=== PATIENT | male | born 1960 | race Caucasian/White ===

== ENCOUNTER 2019-04-30 07:27 | Inpatient (IN) | payer OTHER, MEDICARE ==
[2019-04-30] MEDS ORDERED: IPRATROPIUM/ALBUTEROL 0.5-2.5 MG/3 ML AMPUL NEB ONE (08:32)
--- NOTE | 2019-04-30 09:36 | RADIOLOGY REPORT (SQ) ---
EXAM DESCRIPTION: CHEST SINGLE VIEW COMPLETED DATE/TIME: 04/30/2019 8:53 am REASON FOR STUDY: sob RAD COMPARISON: None. EXAM PARAMETERS: NUMBER OF VIEWS: One view. TECHNIQUE: Single frontal radiographic view of the chest acquired. RADIATION DOSE: NA LIMITATIONS: None. FINDINGS: LUNGS AND PLEURA: Patchy bilateral alveolar infiltrates are present worrisome for pulmonar y edema. Pulmonary vascular congestion is present. No pleural effusion. No pneumothorax MEDIASTINUM AND HILAR STRUCTURES: No masses. Contour normal. HEART AND VASCULAR STRUCTURES: No cardiomegaly BONES: No acute findings. HARDWARE: None in the chest. OTHER: No other significant finding. IMPRESSION: Patchy diffuse bilateral airspace disease worrisome for pulmonary edema. Pneumonia coul d mimic this appearance. TECHNICAL DOCUMENTATION: JOB ID: [id number] [email or web address]- All Rights Reserved Reading location - IP/workstation name: [email or web address]
[2019-04-30 09:55] LABS: ABSOLUTE LYMPHOCYTES (AUTO) 0.7 10^3/uL (0.5-4.7); ABSOLUTE MONOCYTES (AUTO) 0.6 10^3/uL (0.1-1.4); ABSOLUTE NEUT (AUTO) 9.9 10^3/uL (1.7-8.2); BASOPHILS % (AUTO) 0.2 % (0-2); EOSINOPHILS % (AUTO) 0.4 % (0-6); HEMATOCRIT 37.9 % (37.9-51.0); HEMOGLOBIN 12.6 g/dL (13.5-17.0); MEAN CORPUSCULAR HEMOGLOBIN 28.9 pg (27.0-33.4); MEAN CORPUSCULAR HGB CONC 33.4 g/dL (32.0-36.0); MEAN CORPUSCULAR VOLUME 87 fl (80-97); MONOCYTES % (AUTO) 5.7 % (3-13); PLATELET COUNT 156 10^3/uL (150-450); RED BLOOD COUNT 4.38 10^6/uL (4.35-5.55); SEGMENTED NEUTROPHILS % (AUTO) 87.7 % (42-78); TOTAL CELLS COUNTED % (AUTO) 100 %; WHITE BLOOD COUNT 11.2 10^3/uL (4.0-10.5)
[2019-04-30 10:14] LABS: ANION GAP 12 (5-19); BLOOD UREA NITROGEN 10 mg/dL (7-20); CARBON DIOXIDE 27 mmol/L (22-30); CHLORIDE 100 mmol/L (98-107); GLUCOSE 225 mg/dL (75-110); POTASSIUM 4.1 mmol/L (3.6-5.0); SODIUM 138.8 mmol/L (137-145)
[2019-04-30] MEDS ORDERED: CEFTRIAXONE 1 GM/D5W RTU 1 GM/50 ML RTUPB IV ONE (10:19)
[2019-04-30] MEDS ORDERED: AZITHROMYCIN 250 MG TABLET PO ONE (10:20)
--- NOTE | 2019-04-30 10:24 | ER Document Report ---
ED General - General Chief Complaint: Shortness Of Breath Stated Complaint: SHORTNESS OF BREATH Time Seen by Provider: 04/30/19 08:30 Primary Care Provider: MOY,YANNICK [Primary Care Provider] - Follow up as needed Notes: She presents with shortness of breath and cough ongoing over about a 2-week. But worse. Waking up with cold sweats at night as well. History of smoking but is been tobacco free for several years. Does take inhalers here and there but they are not helping this. TRAVEL OUTSIDE OF THE [place] IN LAST 30 DAYS: No - Related Data Allergies/Adverse Reactions: No Known Allergies Allergy (Unverified 04/30/19 07:31) Past Medical History - Social History Smoking Status: Former Smoker Frequency of alcohol use: None Drug Abuse: None Family History: Reviewed & Not Pertinent Patient has suicidal ideation: No Patient has homicidal ideation: No Pulmonary Medical History: Reports: Hx Asthma Endocrine Medical History: Reports: Hx Diabetes Mellitus Type 2 Renal/ Medical History: Denies: Hx Peritoneal Dialysis Psychiatric Medical History: Reports: Hx Anxiety, Hx Post Traumatic Stress Disorder Past Surgical History: Reports: Hx Appendectomy, Hx Orthopedic Surgery - amputation of ring finger left hand - Immunizations Immunizations up to date: Yes Hx Diphtheria, Pertussis, Tetanus Vaccination: No Review of Systems - Review of Systems Notes: REVIEW OF SYSTEMS GEN: Fever sweats ENT: Denies sore throat, nasal discharge, ear pain EYES: Denies blurry vision, eye pain, discharge CV: Denies chest pain, palpitations, edema RESP: Cough phlegm shortness of breath GI: Denies abdominal pain, nausea, vomiting, diarrhea MSK: Denies joint pain/swelling, edema, SKIN: Denies rash, skin lesions LYMPH: Denies swollen glands/lymph nodes NEURO: Denies headache, focal weakness or numbness, dizziness PSYCH: Denies depression, suicidal or homicidal ideation PHYSICAL EXAMINATION General: No acute distress, well-nourished Head: Atraumatic, normocephalic ENT: Mouth normal, oropharynx moist, no exudates or tonsillar enlargement Eyes: Conjunctiva normal, pupils equal, lids normal Neck: No JVD, supple, no guarding CVS: Normal rate, regular rhythm, no murmurs Resp: Bilateral crackles, tachypnea, minimal distress GI: Nondistended, soft, no tenderness to palpation, no rebound or guarding Ext: No deformities, no edema, normal range of motion in upper and lower ext Back: No CVA or midline TTP Skin: No rash, warm Lymphatic: No lymphadeopathy noted Neuro: Awake, alert. Face symmetric. GCS 15. Physical Exam - Vital signs Vitals: Temp Pulse Resp BP Pulse Ox 98.7 F 90 24 H 127/55 H 84 L 04/30/19 07:35 04/30/19 07:35 04/30/19 07:35 04/30/19 07:35 04/30/19 07:35 Course - Re-evaluation Re-evalutation: 04/30/19 10:23 Patient presents with shortness of breath hot sweats history of smoking likely a component of reactive airways disease plus or minus pneumonia. He was initiated on a sepsis protocol and provided submental oxygen. He was given steroids and a breathing treatment. I reassessed him at 10:20 AMat this time his x-ray has come back with bilateral infiltrates which is being read as pulmonary edema but given his clinical picture in my opinion is more likely infectious. He still requiring 4 L and is breathing in the 20 range. He initially want to go home but I convinced him to stay. Labs have been ordered including lactic and cultures, he will be given fluids, there are no signs of severe sepsis. Ordered Rocephin and azithromycin. Discussed with hospitalist Dr. deleon. - Vital Signs Vital signs: Temp Pulse Resp BP Pulse Ox 98.7 F 90 16 129/77 H 97 04/30/19 07:35 04/30/19 07:35 04/30/19 10:01 04/30/19 10:01 04/30/19 10:01 - Laboratory Result Diagrams: 04/30/19 09:30 04/30/19 09:30 Laboratory results interpreted by me: 04/30/19 04/30/19 09:30 09:30 WBC 11.2 H Hgb 12.6 L Seg Neutrophils % 87.7 H Lymphocytes % 6.0 L Absolute Neutrophils 9.9 H Glucose 225 H - Diagnostic Test Radiology reviewed: Pending, Image reviewed, Reports reviewed Discharge - Discharge Clinical Impression: Community acquired pneumonia Qualifiers: Laterality: right Lung location: middle lobe of lung Qualified Code(s): J18.1 - Lobar pneumonia, unspecified organism Condition: Fair Disposition: ADMITTED INPATIENT Admitting Provider: Leisa (Hospitalist) Unit Admitted: Medical Floor [facility] - Follow up as needed
[2019-04-30] MEDS ORDERED: ACETAMINOPHEN 325 MG TABLET PO PRN (13:32)
[2019-04-30] MEDS ORDERED: (PENDING PHARMACY ID) (Oxycodone Hcl/Acetaminophen [Percocet 10-325 Mg Tablet] 1 TAB) PO PRN (13:34)
[2019-04-30] MEDS ORDERED: (PENDING PHARMACY ID) (Trazodone Hcl [Desyrel] 150 MG) PO PRN (13:34)
[2019-04-30] MEDS ORDERED: OXYCODONE HCL IR 5 MG TABLET PO PRN (13:51)
[2019-04-30] MEDS ORDERED: OXYCODONE-ACETAMINOPHEN 5-325 MG TABLET PO PRN (13:51)
[2019-04-30] MEDS: IPRATROPIUM/ALBUTEROL 0.5-2.5 MG/3 ML AMPUL NEB SCH ×2 (13:57→20:07)
[2019-04-30 14:27] LABS: A TYPE INFLUENZA AG NEGATIVE (NEGATIVE); B INFLUENZA AG NEGATIVE (NEGATIVE)
[2019-04-30] MEDS ORDERED: ENOXAPARIN SODIUM INJ 40 MG/0.4 ML DISP.SYRIN SUBCUT SCH (16:00)
--- NOTE | 2019-04-30 18:38 | PDOC H&P ---
History of Present Illness Admission Date/PCP: 04/30/19 10:41 [facility] History of Present Illness: MARIA E BARRETO is a 59 year old male past medical history of DM, PTSD, depression, controlled asthma on as needed albuterol for chronic lateral lower extremity pain opioid dependent, presented to ED complaining of generalized body aches shortness of breath associated with nonproductive cough, denies any fever, chest pain, nausea, vomiting, diarrhea, constipation, weight changes, skin changes, night sweats, heat or cold intolerance. In ED he was found to have an SPO2 of 84% on room air, his x-ray showed diffuse bilateral airspace disease worrisome for pulmonary edema/pneumonia. CMP with mild leukocytosis CMP with hyperglycemia. Lactic acid, troponins, proBNP all WNL. Past Medical History Pulmonary Medical History: Reports: Asthma Endocrine Medical History: Reports: Diabetes Mellitus Type 2 Psychiatric Medical History: Reports: Post Traumatic Stress Disorder Past Surgical History Past Surgical History: Reports: Appendectomy, Orthopedic Surgery - amputation of ring finger left hand Social History Smoking Status: Former Smoker - Advance Directive Resuscitation Status: Full Code Family History Family History: Reviewed & Not Pertinent Parental Family History Reviewed: Yes Children Family History Reviewed: Yes Sibling(s) Family History Reviewed.: Yes Medication/Allergy Home Medications: Albuterol Sulfate [Proair HFA Inhalation Aerosol 8.5 gm MDI] 2 puff IH Q4HP PRN 04/30/19 Fluticasone Propionate [Flonase Nasal [place] 50 Mcg/[place] 16 gm] 2 spray NASL DAILY 04/30/19 Hydroxyzine Pamoate [Vistaril 25 mg Capsule] 25 mg PO TIDP PRN 04/30/19 Hydroxyzine Pamoate [Vistaril 25 mg Capsule] 50 mg PO HSP PRN 04/30/19 Omeprazole 20 mg PO DAILY 04/30/19 Oxycodone HCl/Acetaminophen [Percocet 10-325 mg Tablet] 1 tab PO Q8HP PRN 04/30/19 Prazosin HCl [Minipress] 1 mg PO QHS 04/30/19 Sertraline HCl [Zoloft] 150 mg PO DAILY 04/30/19 Sildenafil Citrate [Viagra] 100 mg PO DAILYP PRN 04/30/19 Sodium Fluoride [Prevident 5000 Plus] 1 applic PO DAILY 04/30/19 Trazodone HCl [Desyrel] 150 mg PO HSP PRN 04/30/19 Allergies/Adverse Reactions: No Known Allergies Allergy (Unverified 04/30/19 07:31) Physical Exam Vital Signs: Temp Pulse Resp BP Pulse Ox 98.4 F 81 19 155/83 H 94 04/30/19 17:12 04/30/19 17:12 04/30/19 17:12 04/30/19 17:12 04/30/19 17:49 Pulse Oximeter Continuous Start: 04/30/19 13:32 Freq: RTQ4 Status: Active Protocol: Document 04/30/19 17:49 B[facility] (Rec: 04/30/19 17:54 BOR [id number]) Pulse Oximetry Assessment Oxygen Saturation (92-100) 94 Oxygen Flow Rate (L/min) 1 Oxygen Delivery Method Nasal Cannula Fraction of Inspired Oxygen (FIO2) 24 Equipment Usage Equipment in Use Continuous Pulse Oximeter 24 Hour Charge Charge Now Continuous SpO2 Machine # 13 Intake & Output 04/29/19 04/30/19 05/01/19 06:59 06:59 06:59 Intake Total 50 Balance 50 Weight 73.8 kg General appearance: PRESENT: no acute distress, well-developed, well-nourished Head exam: PRESENT: atraumatic, normocephalic Eye exam: PRESENT: conjunctiva pink, EOMI, PERRLA. ABSENT: scleral icterus Ear exam: PRESENT: normal external ear exam Mouth exam: PRESENT: moist, tongue midline Neck exam: ABSENT: carotid bruit, JVD, lymphadenopathy, thyromegaly Respiratory exam: PRESENT: clear to auscultation richie. ABSENT: rales, rhonchi, wheezes Cardiovascular exam: PRESENT: RRR. ABSENT: diastolic murmur, rubs, systolic murmur Pulses: PRESENT: normal dorsalis pedis pul Vascular exam: PRESENT: normal capillary refill GI/Abdominal exam: PRESENT: normal bowel sounds, soft. ABSENT: distended, guarding, mass, organolmegaly, rebound, tenderness Rectal exam: PRESENT: deferred Extremities exam: PRESENT: full ROM. ABSENT: calf tenderness, clubbing, pedal edema Neurological exam: PRESENT: alert, awake, oriented to person, oriented to place, oriented to time, oriented to situation, CN II-XII grossly intact. ABSENT: motor sensory deficit Psychiatric exam: PRESENT: appropriate affect, normal mood. ABSENT: homicidal ideation, suicidal ideation Skin exam: PRESENT: dry, intact, warm. ABSENT: cyanosis, rash Results Laboratory Results: 04/30/19 09:30 04/30/19 09:30 04/30/19 04/30/19 04/30/19 09:30 09:30 09:30 WBC 11.2 H RBC 4.38 Hgb 12.6 L Hct 37.9 MCV 87 MCH 28.9 MCHC 33.4 RDW 13.0 Plt Count 156 Seg Neutrophils % 87.7 H Lymphocytes % 6.0 L Monocytes % 5.7 Eosinophils % 0.4 Basophils % 0.2 Absolute Neutrophils 9.9 H Absolute Lymphocytes 0.7 Absolute Monocytes 0.6 Absolute Eosinophils 0.0 Absolute Basophils 0.0 Sodium 138.8 Potassium 4.1 Chloride 100 Carbon Dioxide 27 Anion Gap 12 BUN 10 Creatinine 0.53 Est GFR ( Amer) > 60 Est GFR (Non-Af Amer) > 60 Glucose 225 H Lactic Acid 0.9 Calcium 9.0 04/30/19 09:30 NT-Pro-B Natriuret Pep 754 Impressions: Chest X-Ray 04/30/19 08:32 IMPRESSION: Patchy diffuse bilateral airspace disease worrisome for pulmonary edema. Pneumonia could mimic this appearance. Assessment and Plan - Diagnosis (1) Community acquired pneumonia Qualifiers: Laterality: right Lung location: middle lobe of lung Qualified Code(s): J18.1 - Lobar pneumonia, unspecified organism Is this a current diagnosis for this admission?: Yes Plan: Community-acquired, likely due to gram-positive including strep pneumo. Received 1 dose of azithromycin and ceftriaxone in ED. Continue ceftriaxone, switched to p.o. as appropriate. Follow sputum and blood culture. Supplemental oxygen. (2) Diabetes mellitus type 2 in nonobese Is this a current diagnosis for this admission?: Yes Plan: No A1c available. Diabetic diet, sliding scale insulin, long-acting insulin, pre-meal insulin, Accu-Chek, hypoglycemia protocol. Restart home meds on discharge. Outpatient PCP follow-up. (3) Depression Is this a current diagnosis for this admission?: Yes Plan: Denies any suicidal or homicidal ideation. Restart home meds. Outpatient psychiatry follow-up. (4) PTSD (post-traumatic stress disorder) Is this a current diagnosis for this admission?: Yes Plan: Start home meds. (5) Opioid dependence with current use Is this a current diagnosis for this admission?: No Plan: Due to bilateral chronic knee pain. Restart home meds. Outpatient PCP follow-up. (6) Asthma Qualifiers: Asthma severity: mild Asthma persistence: intermittent Asthma complication type: uncomplicated Qualified Code(s): J45.20 - Mild intermittent asthma, uncomplicated Is this a current diagnosis for this admission?: Yes Plan: Does not seems to be exacerbated. Well controlled. On PRN albuterol. PRN DuoNeb's, BiPAP, supplemental oxygen. Restart home meds on discharge.
[2019-04-30] MEDS: FAMOTIDINE 20 MG TABLET PO SCH (21:20)
[2019-04-30] MEDS: GUAIFENESIN 600 MG TABLET.SA PO SCH (21:20)
[2019-04-30] MEDS: TRAZODONE HCL 50 MG TABLET PO PRN (21:21)
[2019-04-30] MEDS ORDERED: (PENDING PHARMACY ID) (Prazosin Hcl [Minipress] 1 MG) PO SCH (22:00)
[2019-05-01 03:58] LABS: ABSOLUTE EOSINOPHILS # (AUTO) 0.1 10^3/uL (0.0-0.6); ABSOLUTE MONOCYTES (AUTO) 0.6 10^3/uL (0.1-1.4); BASOPHILS % (AUTO) 0.6 % (0-2); EOSINOPHILS % (AUTO) 1.3 % (0-6); HEMATOCRIT 34.4 % (37.9-51.0); HEMOGLOBIN 11.7 g/dL (13.5-17.0); LYMPHOCYTES % (AUTO) 12.4 % (13-45); MEAN CORPUSCULAR HEMOGLOBIN 29.6 pg (27.0-33.4); MEAN CORPUSCULAR HGB CONC 34.1 g/dL (32.0-36.0); MEAN CORPUSCULAR VOLUME 87 fl (80-97); PLATELET COUNT 147 10^3/uL (150-450); RED BLOOD COUNT 3.96 10^6/uL (4.35-5.55); SEGMENTED NEUTROPHILS % (AUTO) 77.7 % (42-78); TOTAL CELLS COUNTED % (AUTO) 100 %; WHITE BLOOD COUNT 7.7 10^3/uL (4.0-10.5)
[2019-05-01 04:14] LABS: ALANINE AMINOTRANSFERASE 26 U/L (21-72); ALBUMIN 2.9 g/dL (3.5-5.0); ALKALINE PHOSPHATASE 75 U/L (38-126); ANION GAP 10 (5-19); ASPARTATE AMINO TRANSFERASE 25 U/L (17-59); BILIRUBIN,DIRECT 0.3 mg/dL (0.0-0.4); BILIRUBIN,TOTAL 0.6 mg/dL (0.2-1.3); BLOOD UREA NITROGEN 10 mg/dL (7-20); CALCIUM 8.2 mg/dL (8.4-10.2); CARBON DIOXIDE 26 mmol/L (22-30); CHLORIDE 102 mmol/L (98-107); GLUCOSE 216 mg/dL (75-110); POTASSIUM 3.5 mmol/L (3.6-5.0); SODIUM 137.6 mmol/L (137-145); TOTAL PROTEIN 5.4 g/dL (6.3-8.2)
[2019-05-01] MEDS: IPRATROPIUM/ALBUTEROL 0.5-2.5 MG/3 ML AMPUL NEB SCH ×3 (08:59→19:49)
[2019-05-01] MEDS ORDERED: CEFTRIAXONE SODIUM 1,000 MG in DEXTROSE 5%-WATER 50 ML IV SCH (10:00)
[2019-05-01] MEDS ORDERED: CEFTRIAXONE 1 GM/D5W RTU 50 ML IV SCH (10:00)
[2019-05-01] MEDS ORDERED: SERTRALINE HCL 50 MG TABLET PO SCH (10:00)
[2019-05-01] MEDS ORDERED: ENOXAPARIN SODIUM INJ 40 MG/0.4 ML DISP.SYRIN SUBCUT SCH (10:00)
[2019-05-01] MEDS: FAMOTIDINE 20 MG TABLET PO SCH ×2 (10:26→22:45)
[2019-05-01] MEDS: GUAIFENESIN 600 MG TABLET.SA PO SCH ×2 (10:26→22:45)
--- NOTE | 2019-05-01 13:05 | PDOC PROGRESS REPORT ---
Subjective Progress Note for:: 05/01/19 Subjective:: This is 49 years old male patient with past medical history of type 2 diabetes mellitus, PTSD, depression, bronchial asthma, opiate dependence presented with chief complaint of generalized body aches, shortness of breath associated with cough productive of sputum. His chest x-ray shows diffuse bilateral airspace disease worrisome for pulmonary edema/pneumonia. Patient empirically started on ceftriaxone and Zithromax. Patient reports this morning his shortness of breath is relatively improving. If he remains stable he is potential discharge for tomorrow. Reason For Visit: PNEUMONIA,DM Physical Exam Vital Signs: Temp Pulse Resp BP Pulse Ox 98.4 F 86 16 145/75 H 97 05/01/19 08:41 05/01/19 08:59 05/01/19 08:59 05/01/19 08:41 05/01/19 12:00 Pulse Oximeter Continuous Start: 04/30/19 13:32 Freq: RTQ4 Status: Active Protocol: Document 05/01/19 12:00 [facility] (Rec: 05/01/19 12:43 [facility] [email or web address]) Pulse Oximetry Assessment Oxygen Saturation (92-100) 97 Oxygen Flow Rate (L/min) 1 Oxygen Delivery Method Nasal Cannula Fraction of Inspired Oxygen (FIO2) 24 Equipment Usage Equipment in Use Continuous SpO2 Machine # 13 Intake & Output 04/30/19 05/01/19 05/02/19 06:59 06:59 06:59 Intake Total 1310 50 Output Total 2 Balance 1308 50 Weight 74.8 kg General appearance: PRESENT: no acute distress Head exam: PRESENT: atraumatic Neck exam: ABSENT: carotid bruit, JVD, lymphadenopathy, thyromegaly Respiratory exam: PRESENT: crackles Cardiovascular exam: PRESENT: RRR. ABSENT: diastolic murmur, rubs, systolic murmur GI/Abdominal exam: PRESENT: normal bowel sounds, soft. ABSENT: distended, guarding, mass, organolmegaly, rebound, tenderness Neurological exam: PRESENT: alert, awake, oriented to person, oriented to place, oriented to time, oriented to situation Results Laboratory Results: 05/01/19 03:38 05/01/19 03:38 05/01/19 05/01/19 03:38 03:38 WBC 7.7 RBC 3.96 L Hgb 11.7 L Hct 34.4 L MCV 87 MCH 29.6 MCHC 34.1 RDW 13.0 Plt Count 147 L Seg Neutrophils % 77.7 Lymphocytes % 12.4 L Monocytes % 8.0 Eosinophils % 1.3 Basophils % 0.6 Absolute Neutrophils 6.0 Absolute Lymphocytes 1.0 Absolute Monocytes 0.6 Absolute Eosinophils 0.1 Absolute Basophils 0.0 Sodium 137.6 Potassium 3.5 L Chloride 102 Carbon Dioxide 26 Anion Gap 10 BUN 10 Creatinine 0.45 L Est GFR ( Amer) > 60 Est GFR (Non-Af Amer) > 60 Glucose 216 H Calcium 8.2 L Total Bilirubin 0.6 AST 25 ALT 26 Alkaline Phosphatase 75 Total Protein 5.4 L Albumin 2.9 L 04/30/19 09:30 NT-Pro-B Natriuret Pep 754 Impressions: Chest X-Ray 04/30/19 08:32 IMPRESSION: Patchy diffuse bilateral airspace disease worrisome for pulmonary edema. Pneumonia could mimic this appearance. Assessment and Plan - Diagnosis (1) Community acquired pneumonia Is this a current diagnosis for this admission?: Yes Plan: Continue ceftriaxone and Zithromax. (2) Type 2 diabetes mellitus Is this a current diagnosis for this admission?: Yes Plan: When I review his home medications, Antidiabetic medications are not in the list. I will continue sliding scale. (3) PTSD and depression Is this a current diagnosis for this admission?: Yes Plan: Continue his home medications. (4) History of bronchial asthma. Is this a current diagnosis for this admission?: Yes Plan: In remission.
[2019-05-01] MEDS: TRAZODONE HCL 50 MG TABLET PO PRN (22:45)
[2019-05-02] MEDS: IPRATROPIUM/ALBUTEROL 0.5-2.5 MG/3 ML AMPUL NEB SCH (07:42)
--- NOTE | 2019-05-02 08:34 | PDOC DISCHARGE SUMMARY ---
General - Admit/Disc Date/PCP Admission Date/Primary Care Provider: 05/01/19 09:47 [facility] Discharge Date: 05/02/19 - Discharge Diagnosis (1) Community acquired pneumonia Is this a current diagnosis for this admission?: Yes (2) Type 2 diabetes mellitus Is this a current diagnosis for this admission?: Yes (3) PTSD and depression Is this a current diagnosis for this admission?: Yes (4) History of bronchial asthma. Is this a current diagnosis for this admission?: Yes - Additional Information Resuscitation Status: Full Code Home Medications: Albuterol Sulfate [Proair HFA Inhalation Aerosol 8.5 gm MDI] 2 puff IH Q4HP PRN 04/30/19 Fluticasone Propionate [Flonase Nasal [place] 50 Mcg/[place] 16 gm] 2 spray NASL ASAEL LY 04/30/19 Hydroxyzine Pamoate [Vistaril 25 mg Capsule] 25 mg PO TIDP PRN 04/30/19 Hydroxyzine Pamoate [Vistaril 25 mg Capsule] 50 mg PO HSP PRN 04/30/19 Omeprazole 20 mg PO DAILY 04/30/19 Oxycodone HCl/Acetaminophen [Percocet 10-325 mg Tablet] 1 tab PO Q8HP PRN 04/30/19 Prazosin HCl [Minipress] 1 mg PO QHS 04/30/19 Sertraline HCl [Zoloft] 150 mg PO DAILY 04/30/19 Sildenafil Citrate [Viagra] 100 mg PO DAILYP PRN 04/30/19 Sodium Fluoride [Prevident 5000 Plus] 1 applic PO DAILY 04/30/19 Trazodone HCl [Desyrel] 150 mg PO HSP PRN 04/30/19 History of Present Illness History of Present Illness: MARIA E BARRETO is a 59 year old male MARIA E BARRETO is a 59 year old male past medical history of DM, PTSD, depression, controlled asthma on as needed alb uterol for chronic lateral lower extremity pain opioid dependent, presented to ED complaining of generalized body aches shortness of breath associated with nonproductive cough, denies any fever, chest pain, nausea, vomiting, diarrhea, constipation, weight changes, skin changes, night sweats, heat or cold intolerance. In ED he was found to have an SPO2 of 84% on room air, his x-ray showed diffuse bilateral airspace disease worrisome for pulmonary edema/pneumonia. CMP with mild leukocytosis CMP with hyperglycemia. Lactic acid, troponins, proBNP all WNL. Hospital Course Hospital Course: This is 49 years old male patient with past medical history of type 2 diabetes mellitus, PTSD, depression, bronchial asthma, opiate dependence presented with chief complaint of generalized body aches, shortness of breath associated with cough productive of sputum. His chest x-ray shows diffuse bilateral airspace disease worrisome for pulmonary edema/pneumonia. Patient empirically started on ceftriaxone and Zithromax. Patient reports this morning his shortness of breath is relatively improving. If he remains stable he is potential discharge for tomorrow. 05/02/2019: This morning patient seen sitting up in bed. He is awake alert oriented he is not in pain or distress. He saturates 90-96% on room air. His vital signs and blood works are unremarkable. Patient is stable enough to be discharged today. Send him with Levaquin 500 mg p.o. daily for 5 days. Even though type 2 diabetes mellitus mentioned in his history and diagnosis, patient reports that he is taken off of all his diabetic medication 2 years ago. He has blood glucose ranging between 269 225. Patient needs reevaluation with PCP to restart him on his diabetes medications. Physical Exam Vital Signs: Temp Pulse Resp BP Pulse Ox 97.9 F 94 16 134/74 H 93 05/01/19 20:02 05/02/19 07:42 05/02/19 07:42 05/01/19 20:02 05/02/19 07:42 Pulse Oximeter Continuous Start: 04/30/19 13:32 Freq: RTQ4 Status: Active Protocol: Document 05/02/19 07:42 [facility] (Rec: 05/02/19 07:51 BOR [id number]) Pulse Oximetry Assessment Oxygen Saturation (92-100) 93 Oxygen Delivery Method Room Air Fraction of Inspired Oxygen (FIO2) 21 Equipment Usage Equipment in Use Continuous SpO2 Machine # 13 Intake & Output 05/01/19 05/02/19 05/03/19 06:59 06:59 06:59 Intake Total 1310 1370 Output Total 2 Balance 1308 1370 Weight 74.8 kg 75.3 kg General appearance: PRESENT: no acute distress, well-developed, well-nourished Head exam: PRESENT: atraumatic, normocephalic Eye exam: PRESENT: conjunctiva pink, EOMI, PERRLA. ABSENT: scleral icterus Ear exam: PRESENT: normal external ear exam Mouth exam: PRESENT: moist, tongue midline Neck exam: ABSENT: carotid bruit, JVD, lymphadenopathy, thyromegaly Respiratory exam: PRESENT: clear to auscultation richie. ABSENT: rales, rhonchi, wheezes Cardiovascular exam: PRESENT: RRR. ABSENT: diastolic murmur, rubs, systolic murmur Pulses: PRESENT: normal dorsalis pedis pul Vascular exam: PRESENT: normal capillary refill GI/Abdominal exam: PRESENT: normal bowel sounds, soft. ABSENT: distended, guarding, mass, organolmegaly, rebound, tenderness Rectal exam: PRESENT: deferred Extremities exam: PRESENT: full ROM. ABSENT: calf tenderness, clubbing, pedal edema Neurological exam: PRESENT: alert, awake, oriented to person, oriented to place, oriented to time, oriented to situation, CN II-XII grossly intact. ABSENT: motor sensory deficit Psychiatric exam: PRESENT: appropriate affect, normal mood. ABSENT: homicidal ideation, suicidal ideation Skin exam: PRESENT: dry, intact, warm. ABSENT: cyanosis, rash Results Laboratory Results: 05/01/19 03:38 05/01/19 03:38 04/30/19 09:30 NT-Pro-B Natriuret Pep 754 Impressions: Chest X-Ray 04/30/19 08:32 IMPRESSION: Patchy diffuse bilateral airspace disease worrisome for pulmonary edema. Pneumonia could mimic this appearance. Qualifiers - * PATIENT BEING DISCHARGED WITH ANY OF THE FOLLOWING DIAGNOSIS: No Acute Heart Failure - Is this a Heart Failure Patient?: No LVEF < 40%?: No- if no continue to question #3 3. Anticoagulant therapy for permanect/persistent/paraoxysmal Afib or Aflutter: N/A
[2019-05-02 08:45] VITALS: BP 138/74
== END 2019-05-02 09:05 | disposition home or self-care (01) | DRG 195 ==
LOC: ER 07:27 → EH 10:41 → INTOOBSV 10:41 → 4N 17:07 → OBSVTOIN 05-01 09:47
PROVIDERS: ADMIT Internal Medicine; ATTEND Internal Medicine
DX: J18.1 Lobar pneumonia, unspecified organism (principal); Z87.891 Personal history of nicotine dependence; F41.9 Anxiety disorder, unspecified; F43.10 Post-traumatic stress disorder, unspecified; Z89.022 Acquired absence of left finger(s); F32.9 Major depressive disorder, single episode, unspecified; Z79.891 Long term (current) use of opiate analgesic; J45.20 Mild intermittent asthma, uncomplicated; E11.65 Type 2 diabetes mellitus with hyperglycemia
CPT/HCPCS: 36415; 71045; 80048; 80053; 83605; 83880; 85025; 87040; 87070; 87205; 87804; 94640; 94762; 99285; G0378; J0696; J3490; J7060; J7620

== ENCOUNTER 2019-10-03 23:56 | Inpatient (IN) | payer OTHER, MEDICARE ==
[2019-10-04] MEDS ORDERED: IPRATROPIUM/ALBUTEROL 0.5-2.5 MG/3 ML AMPUL NEB ONE (00:07)
[2019-10-04] MEDS ORDERED: MAGNESIUM SULFATE INJ 8 MEQ/2 ML IV ONE (00:23)
[2019-10-04] MEDS ORDERED: METHYLPREDNISOLONE INJ 125 MG/2 ML SDV IV ONE (00:25)
--- NOTE | 2019-10-04 00:34 | ER Document Report ---
ED General - General Chief Complaint: Breathing Difficulty Stated Complaint: DIFFICULTY BREATHING Time Seen by Provider: 10/04/19 00:05 Primary Care Provider: YANNICK WINTER [Primary Care Provider] - Follow up as needed TRAVEL OUTSIDE OF THE [place] IN LAST 30 DAYS: No - HPI Notes: 59-year-old male with a history of "bronchial asthma", former smoker, presents complaining of shortness of breath and cough that has been present for approximately 1 week. Patient is apparently on an albuterol MDI and Flonase. Patient states he has felt achy and feverish but does not believe he is actually running a fever. Patient denies productive cough. Patient denies chest pain. Patient states he has received flu vaccination this year. Patient states he is concerned he may have pneumonia. Exertion worsens the patient's shortness of breath. Lying still improves his dyspnea slightly. - Related Data Allergies/Adverse Reactions: No Known Allergies Allergy (Unverified 04/30/19 07:31) Past Medical History - General Information source: Patient - Social History Smoking Status: Former Smoker Chew tobacco use (# tins/day): No Frequency of alcohol use: None Drug Abuse: None Family History: Reviewed & Not Pertinent Patient has suicidal ideation: No Patient has homicidal ideation: No Pulmonary Medical History: Reports: Hx Asthma Endocrine Medical History: Reports: Hx Diabetes Mellitus Type 2 Renal/ Medical History: Denies: Hx Peritoneal Dialysis Psychiatric Medical History: Reports: Hx Anxiety, Hx Post Traumatic Stress Disorder Past Surgical History: Reports: Hx Appendectomy, Hx Orthopedic Surgery - amputation of ring finger left hand - Immunizations Immunizations up to date: Yes Hx Diphtheria, Pertussis, Tetanus Vaccination: No Review of Systems - Review of Systems Constitutional: No symptoms reported EENT: No symptoms reported Cardiovascular: No symptoms reported Respiratory: Short of breath Gastrointestinal: No symptoms reported Genitourinary: No symptoms reported Male Genitourinary: No symptoms reported Musculoskeletal: No symptoms reported Skin: No symptoms reported Hematologic/Lymphatic: No symptoms reported Neurological/Psychological: No symptoms reported -: Yes All other systems reviewed and negative Physical Exam - Vital signs Vitals: Temp Pulse Resp BP Pulse Ox 99.1 F 110 H 26 H 145/64 H 86 L 10/04/19 00:05 10/04/19 00:05 10/04/19 00:05 10/04/19 00:05 10/04/19 00:05 - Notes Notes: PHYSICAL EXAMINATION: GENERAL: Well-appearing, well-nourished and in no acute distress. HEAD: Atraumatic, normocephalic. EYES: Pupils equal round and reactive to light, extraocular movements intact, sclera anicteric, conjunctiva are normal. ENT: nares patent, oropharynx clear without exudates. Moist mucous membranes. NECK: Normal range of motion, supple without lymphadenopathy LUNGS: Breath sounds clear to auscultation bilaterally and equal. No wheezes rales or rhonchi. HEART: Regular rate and rhythm without murmurs ABDOMEN: Soft, nontender, normoactive bowel sounds. No guarding, no rebound. No masses appreciated. EXTREMITIES: Normal range of motion, no pitting or edema. No cyanosis. NEUROLOGICAL: No focal neurological deficits. Moves all extremities spontaneously and on command. PSYCH: Normal mood, normal affect. SKIN: Warm, Dry, normal turgor, no rashes or lesions noted. Course - Re-evaluation Re-evalutation: 10/04/19 01:48 Results of MSE discussed with patient. Given patient's history of diabetes and bilateral airspace disease this MD feels that the patient would benefit from inpatient admission. This was discussed with the patient who agreed to be admitted. - Vital Signs Vital signs: Temp Pulse Resp BP Pulse Ox 99.4 F 110 H 17 134/70 H 97 10/04/19 01:34 10/04/19 00:05 10/04/19 00:20 10/04/19 00:09 10/04/19 00:59 - Laboratory Result Diagrams: 10/04/19 00:12 10/04/19 00:12 Laboratory results interpreted by me: 10/04/19 10/04/19 10/04/19 00:12 00:12 00:12 WBC 12.7 H RBC 3.64 L Hgb 10.4 L Hct 31.6 L Lymph % (Auto) 5.8 L Absolute Neuts (auto) 11.4 H Seg Neutrophils % 89.5 H VBG pH Glucose 239 H NT-Pro-B Natriuret Pep 399 H Total Protein 6.2 L Albumin 3.4 L 10/04/19 00:12 WBC RBC Hgb Hct Lymph % (Auto) Absolute Neuts (auto) Seg Neutrophils % VBG pH 7.43 H Glucose NT-Pro-B Natriuret Pep Total Protein Albumin All laboratory results reviewed by this MD. - Diagnostic Test Radiology reviewed: Reports reviewed - EKG Interpretation by Me Additional EKG results interpreted by me: 10/04/19 00:34 EKG performed on 10/04/2019 at 00 15 hours was interpreted by this MD. Findings sinus rhythm with a rate of 97, normal axis, P waves preceding QRS complexes, QRS complexes appear narrow, ST segments are nonspecific. Impression normal sinus rhythm with nonspecific ST segments. - Consults dr neno mcdaniel Time consulted: 01:50 Reason for consultation: 10/04/19 01:50 bilateral pneumonia, dm Consulted provider: will see as inpatient Discharge - Discharge Clinical Impression: community aquired pneumonia, Type 2 diabetes mellitus Condition: Fair Disposition: ADMITTED OBSERVATION Admitting Provider: Arthur (Hospitalist) Unit Admitted: Telemetry Referrals: [facility] [[facility] - Follow up as needed
[2019-10-04 00:37] LABS: ABSOLUTE EOSINOPHILS # (AUTO) 0.1 10^3/uL (0.0-0.6); ABSOLUTE LYMPHOCYTES (AUTO) 0.7 10^3/uL (0.5-4.7); ABSOLUTE MONOCYTES (AUTO) 0.5 10^3/uL (0.1-1.4); ABSOLUTE NEUT (AUTO) 11.4 10^3/uL (1.7-8.2); BASOPHILS % (AUTO) 0.1 % (0-2); EOSINOPHILS % (AUTO) 0.5 % (0-6); HEMATOCRIT 31.6 % (37.9-51.0); HEMOGLOBIN 10.4 g/dL (13.5-17.0); LYMPHOCYTES % (AUTO) 5.8 % (13-45); MEAN CORPUSCULAR HEMOGLOBIN 28.7 pg (27.0-33.4); MEAN CORPUSCULAR VOLUME 87 fl (80-97); MONOCYTES % (AUTO) 4.1 % (3-13); PLATELET COUNT 348 10^3/uL (150-450); RED BLOOD COUNT 3.64 10^6/uL (4.35-5.55); RED CELL DISTRIBUTION WIDTH 13.6 % (11.5-14.0); SEGMENTED NEUTROPHILS % (AUTO) 89.5 % (42-78); TOTAL CELLS COUNTED % (AUTO) 100 %; WHITE BLOOD COUNT 12.7 10^3/uL (4.0-10.5)
[2019-10-04 00:42] LABS: ALBUMIN 3.4 g/dL (3.5-5.0); ALKALINE PHOSPHATASE 111 U/L (38-126); ANION GAP 11 (5-19); ASPARTATE AMINO TRANSFERASE 33 U/L (17-59); BILIRUBIN,DIRECT 0.1 mg/dL (0.0-0.4); BILIRUBIN,TOTAL 0.5 mg/dL (0.2-1.3); BLOOD UREA NITROGEN 8 mg/dL (7-20); CALCIUM 8.9 mg/dL (8.4-10.2); CARBON DIOXIDE 28 mmol/L (22-30); CHLORIDE 100 mmol/L (98-107); GLUCOSE 239 mg/dL (75-110); POTASSIUM 3.8 mmol/L (3.6-5.0); TOTAL PROTEIN 6.2 g/dL (6.3-8.2)
[2019-10-04] MEDS: MAGNESIUM SULFATE/D5W 1 GM/100 ML RTUPB IV SCH ×2 (00:48→01:31)
[2019-10-04 00:53] LABS: NT PRO BNP 399 pg/mL (<125)
[2019-10-04 00:55] LABS: TROPONIN I < 0.012 ng/mL
--- NOTE | 2019-10-04 00:56 | RADIOLOGY REPORT (SQ) ---
XR CHEST 1 VIEW EXAM DATE: 10/04/2019 12:23 AM [employer] HISTORY: Shortness of breath. COMPARISON: 04/30/2019 FINDINGS: The heart size is within normal limits. No pulmonary vascular congestion is seen. There are bilateral patchy airspace opacities in a predominantly peripheral distribution, which has increased from prior study. No pleural effusions or pneumothorax is seen. No acute bony findings. IMPRESSION: Patchy bilateral airspace opacities suggestive of multifocal infection. Findings have worsened since prior study.
[2019-10-04] MEDS ORDERED: NORMAL SALINE 1000 ML 2,250 ML IV ONE (00:59)
[2019-10-04] MEDS ORDERED: LEVOFLOXACIN 750 MG/D5W RTU 750 MG/150 ML RTUPB IV ONE (00:59)
[2019-10-04 01:09] LABS: VENOUS BLOOD BASE EXCESS 4.9 mmol/L; VENOUS BLOOD PCO2 46.7 mmHg (35-63); VENOUS BLOOD PH 7.43 (7.30-7.42)
[2019-10-04 01:14] LABS: INTERNATIONAL RATION (INR) 1.17
[2019-10-04] MEDS ORDERED: HYDRALAZINE HCL INJ/PF 20 MG/1 ML SDV IV PRN (01:47)
[2019-10-04] MEDS ORDERED: IPRATROPIUM/ALBUTEROL 0.5-2.5 MG/3 ML AMPUL NEB PRN (01:49)
[2019-10-04] MEDS ORDERED: DEXTROSE 40% GEL 15 GM TUBE PO PRN ×2 (01:49)
[2019-10-04] MEDS ORDERED: DEXTROSE 50%-WATER 25 GM/50 ML DISP.SYRIN IV PRN ×2 (01:49)
[2019-10-04] MEDS ORDERED: GLUCAGON,HUMAN RECOMB 1 MG INJ IM PRN (01:49)
[2019-10-04] MEDS ORDERED: VANCOMYCIN HCL 1,500 MG in DEXTROSE 5%-WATER 250 ML IV ONE (01:51)
[2019-10-04] MEDS ORDERED: VANCOMYCIN HCL 0 MG in DEXTROSE 5%-WATER 250 ML IV NR ×2 (02:00→10:30)
[2019-10-04] MEDS ORDERED: VANCOMYCIN HCL INJ 1000 MG VIAL IV PRN (02:17)
[2019-10-04] MEDS: IPRATROPIUM/ALBUTEROL 0.5-2.5 MG/3 ML AMPUL NEB SCH ×4 (02:30→19:49)
[2019-10-04] MEDS ORDERED: CEFEPIME 2 GM/D5W RTU 2 GM/50 ML RTUPB IV ONE (02:30)
[2019-10-04] MEDS ORDERED: CEFTRIAXONE 1 GM/D5W RTU 1 GM/50 ML RTUPB IV ONE (03:00)
[2019-10-04] MEDS: HEPARIN SOD (PORCINE) 5,000 UNIT/ML 1 ML VIAL SUBCUT SCH ×3 (05:26→22:19)
--- NOTE | 2019-10-04 06:10 | PDOC H&P ---
History of Present Illness Admission Date/PCP: 10/04/19 02:04 [facility] Patient complains of: sob cough History of Present Illness: MARIA E BARRETO is a 59 year old male with a past medical history of tobacco dependence, diabetes, hypertension, COPD, chronic bronchitis and bilateral pneumonia. Patient presents with 2 weeks of worsening shortness of breath and intermittent productive cough associated with dull chest pain and night sweats. In the emergency room is found to have leukocytosis, tachypnea, splinting and bilateral infiltrates on chest x-ray. He started on empiric antibiotics and referred to the hospitalist for admission. Patient denies infectious contacts, sore throat, rhinorrhea but admits to uncontrolled GERD. He denies recent antibiotic use or recent change of medication regiment. Past Medical History Pulmonary Medical History: Reports: Asthma, Bronchitis, Chronic Obstructive Pulmonary Disease (COPD) Endocrine Medical History: Reports: Diabetes Mellitus Type 2 Psychiatric Medical History: Reports: Depression, Post Traumatic Stress Disorder Past Surgical History Past Surgical History: Reports: Appendectomy, Orthopedic Surgery - amputation of ring finger left hand Social History Information Source: Patient, [facility] Records Lives with: Alone Smoking Status: Current Every Day Smoker - Stopped smoking 2 days ago Electronic Cigarette use?: No Number of Years Smokin Last Time Smoked: 09/28/19 Frequency of Alcohol Use: None Hx Recreational Drug Use: No Drugs: None Hx Prescription Drug Abuse: No - Advance Directive Resuscitation Status: Full Code Family History Family History: COPD, Malignancy - Mother of small cell lung cancer, father of unknown malignancy Parental Family History Reviewed: Yes Children Family History Reviewed: Yes Sibling(s) Family History Reviewed.: Yes Medication/Allergy Home Medications: Albuterol Sulfate [Proair HFA Inhalation Aerosol 8.5 gm MDI] 2 puff IH Q4HP PRN 04/30/19 Fluticasone Propionate [Flonase Nasal [place] 50 Mcg/[place] 16 gm] 2 spray NASL DAILY 04/30/19 Hydroxyzine Pamoate [Vistaril 25 mg Capsule] 25 mg PO TIDP PRN 04/30/19 Hydroxyzine Pamoate [Vistaril 25 mg Capsule] 50 mg PO QHS 04/30/19 Omeprazole 20 mg PO DAILY 04/30/19 Oxycodone HCl/Acetaminophen [Percocet 10-325 mg Tablet] 1 tab PO Q8HP PRN 04/30/19 Prazosin HCl [Minipress] 1 mg PO QHS 04/30/19 Sertraline HCl [Zoloft] 150 mg PO DAILY 04/30/19 Sildenafil Citrate [Viagra] 100 mg PO DAILYP PRN 04/30/19 Trazodone HCl [Desyrel] 150 mg PO HSP PRN 04/30/19 Allergies/Adverse Reactions: No Known Allergies Allergy (Unverified 04/30/19 07:31) Review of Systems Constitutional: PRESENT: as per HPI, chills, fatigue, fever(s), weakness, weight loss Eyes: ABSENT: visual disturbances Ears: ABSENT: hearing changes Cardiovascular: ABSENT: chest pain, dyspnea on exertion, edema, orthropnea, palpitations Respiratory: PRESENT: as per HPI, cough, dyspnea, sputum Gastrointestinal: ABSENT: abdominal pain, constipation, diarrhea, hematemesis, hematochezia, nausea, vomiting Genitourinary: ABSENT: dysuria, hematuria Musculoskeletal: ABSENT: joint swelling Integumentary: ABSENT: rash, wounds Neurological: ABSENT: abnormal gait, abnormal speech, confusion, dizziness, focal weakness, syncope Psychiatric: ABSENT: anxiety, depression, homidical ideation, suicidal ideation Endocrine: ABSENT: cold intolerance, heat intolerance, polydipsia, polyuria Hematologic/Lymphatic: ABSENT: easy bleeding, easy bruising Physical Exam Vital Signs: Temp Pulse Resp BP Pulse Ox 98.3 F 88 17 131/60 H 93 10/04/19 03:39 10/04/19 03:39 10/04/19 03:39 10/04/19 03:39 10/04/19 03:39 Intake & Output 10/02/19 10/03/19 10/04/19 11:59 11:59 11:59 Intake Total 650 Output Total 0 Balance 650 Weight 79.2 kg General appearance: PRESENT: cooperative, mild distress, well-developed, well- nourished. ABSENT: disheveled Head exam: PRESENT: atraumatic, normocephalic Eye exam: PRESENT: conjunctiva pink, EOMI, PERRLA. ABSENT: scleral icterus Ear exam: PRESENT: normal external ear exam Mouth exam: PRESENT: moist, tongue midline Neck exam: ABSENT: carotid bruit, JVD, lymphadenopathy, thyromegaly Respiratory exam: PRESENT: accessory muscle use, clear to auscultation richie, prolonged expiratory phas, retraction, rhonchi, tachypnea. ABSENT: rales, wheezes Cardiovascular exam: PRESENT: tachycardia. ABSENT: diastolic murmur, rubs, systolic murmur Pulses: PRESENT: normal dorsalis pedis pul Vascular exam: PRESENT: normal capillary refill GI/Abdominal exam: PRESENT: normal bowel sounds, soft. ABSENT: distended, guarding, mass, organolmegaly, rebound, tenderness Rectal exam: PRESENT: deferred Extremities exam: PRESENT: full ROM. ABSENT: calf tenderness, clubbing, pedal edema Neurological exam: PRESENT: alert, awake, oriented to person, oriented to place, oriented to time, oriented to situation, CN II-XII grossly intact. ABSENT: motor sensory deficit Psychiatric exam: PRESENT: appropriate affect, normal mood. ABSENT: homicidal ideation, suicidal ideation Skin exam: PRESENT: dry, intact, warm. ABSENT: cyanosis, rash Results Laboratory Results: 10/04/19 00:12 10/04/19 00:12 10/04/19 10/04/19 10/04/19 00:12 00:12 00:12 WBC 12.7 H RBC 3.64 L Hgb 10.4 L Hct 31.6 L MCV 87 MCH 28.7 MCHC 33.0 RDW 13.6 Plt Count 348 Seg Neutrophils % 89.5 H VBG pH 7.43 H VBG pCO2 46.7 VBG HCO3 30.0 VBG Base Excess 4.9 Sodium 138.8 Potassium 3.8 Chloride 100 Carbon Dioxide 28 Anion Gap 11 BUN 8 Creatinine 0.59 Est GFR ( Amer) > 60 Glucose 239 H Calcium 8.9 Total Bilirubin 0.5 AST 33 Alkaline Phosphatase 111 Total Protein 6.2 L Albumin 3.4 L 10/04/19 00:12 Troponin I < 0.012 NT-Pro-B Natriuret Pep 399 H Impressions: Chest X-Ray 10/04/19 00:23 IMPRESSION: Patchy bilateral airspace opacities suggestive of multifocal infection. Findings have worsened since prior study. Assessment and Plan - Diagnosis (1) Community acquired pneumonia Is this a current diagnosis for this admission?: Yes Plan: Bilateral infiltrate concerning for weight loss, family history of lung cancer, 40 pack years. Empiric antibiotics initiated, follow-up chest CT (2) Type 2 diabetes mellitus Is this a current diagnosis for this admission?: Yes Plan: Humalog sliding scale Qac, follow-up medication reconciliation and A1c (3) PTSD and depression Is this a current diagnosis for this admission?: Yes Plan: Compensated, outpatient regiment, (4) COPD exacerbation Is this a current diagnosis for this admission?: Yes Plan: Albuterol, Atrovent, flutter valve and incentive spirometry - Time Time Spent with patient: 25-34 minutes - Inpatient Certification Medical Necessity: Need Close Monitoring Due to Risk of Patient Decompensation
[2019-10-04 06:45] LABS: HEMATOCRIT 30.6 % (37.9-51.0); HEMOGLOBIN 10.1 g/dL (13.5-17.0); MEAN CORPUSCULAR HEMOGLOBIN 28.6 pg (27.0-33.4); MEAN CORPUSCULAR HGB CONC 33.1 g/dL (32.0-36.0); MEAN CORPUSCULAR VOLUME 86 fl (80-97); PLATELET COUNT 315 10^3/uL (150-450); RED BLOOD COUNT 3.54 10^6/uL (4.35-5.55); WHITE BLOOD COUNT 13.8 10^3/uL (4.0-10.5)
[2019-10-04 06:49] LABS: ABSOLUTE RETICS # 0.038 10^6/uL (0.028-0.122); RETICULOCYTE COUNT (AUTO) 1.08 % (0.66-2.85)
[2019-10-04 06:57] LABS: IRON(TIBC) 10.5 ug/dL (49-181)
[2019-10-04 07:02] LABS: ANION GAP 11 (5-19); BLOOD UREA NITROGEN 9 mg/dL (7-20); CALCIUM 8.4 mg/dL (8.4-10.2); CARBON DIOXIDE 27 mmol/L (22-30); CHLORIDE 99 mmol/L (98-107); GLUCOSE 263 mg/dL (75-110); POTASSIUM 4.6 mmol/L (3.6-5.0)
[2019-10-04 07:28] LABS: ABSOLUTE LYMPHOCYTES# (MANUAL) 0.3 10^3/uL (0.5-4.7); ABSOLUTE MONOCYTES # (MANUAL) 0.1 10^3/uL (0.1-1.4); BASOPHILS % (MANUAL) 0 % (0-2); EOSINOPHILS % (MANUAL) 0 % (0-6); LYMPHOCYTES % (MANUAL) 2 % (13-45); MONOCYTES % (MANUAL) 1 % (3-13); SEGMENTED NEUTROPHILS % (MAN) 97 % (42-78); TOTAL CELLS COUNTED 100
[2019-10-04 07:29] LABS: PLATELET COMMENT ADEQUATE; PLATELET GIANT PRESENT; PLATELET LARGE PRESENT; RBC MORPHOLOGY COMMENT NORMO-CYTIC/CHROMIC; TOXIC GRANULATION SLIGHT
[2019-10-04] MEDS: INSULIN LISPRO 100 UNIT/ML 3 ML VIAL SUBCUT SCH ×3 (07:30→16:36)
[2019-10-04 08:03] LABS: FOLATE 9.17 ng/mL (>2.76)
[2019-10-04] MEDS: FLUTICASONE NASAL SPRAY 50 MCG/SPRY 120 SPRAY/16 GM NASL SCH ×2 (10:13→17:51)
[2019-10-04] MEDS: PREDNISONE 20 MG TABLET PO SCH ×2 (10:13→17:50)
[2019-10-04] MEDS: AZITHROMYCIN 250 MG TABLET PO SCH (10:35)
--- NOTE | 2019-10-04 11:59 | RADIOLOGY REPORT (SQ) ---
EXAM DESCRIPTION: CT CHEST WITHOUT COMPLETED DATE/TIME: 10/04/2019 11:37 am REASON FOR STUDY: weight loss, recurring pna, 4- pk yrs COMPARISON: None. TECHNIQUE: CT scan performed of the chest without intravenous contrast. Images reviewed with lung, soft tissue and bone windows. Reconstructed coronal and sagittal MPR images reviewed. All images st ored on PACS. All CT scanners at this facility use dose modulation, iterative reconstruction, and/or weight based d osing when appropriate to reduce radiation dose to as low as reasonably achievable (ALARA). [facility]: Dose Right [facility]: CareDose [facility]: Dose Right [facility]: Teradose 4D [facility]: Smart RelateIQ RADIATION DOSE: CT Rad equipment meets quality standard of care and radiation dose reduction techniq ues were employed. CTDIvol: 10.0 mGy. DLP: 371 mGy-cm. mGy. LIMITATIONS: No technical limitations. FINDINGS: LUNGS AND PLEURA: Diffuse patchy bilateral airspace disease with air bronchograms. No kasey dence of cavitation. No effusions. HILAR AND MEDIASTINAL STRUCTURES: No identified masses or abnormal nodes. No obvious aneurysm. HEART AND VASCULAR STRUCTURES: No aneurysm. No pericardial effusion. UPPER ABDOMEN: No significant findings. Limited exam. THYROID AND OTHER SOFT TISSUES: No masses. No adenopathy. BONES: No significant finding. HARDWARE: None in the chest. OTHER: No other significant findings. IMPRESSION: Multifocal bilateral pneumonia. TECHNICAL DOCUMENTATION: JOB ID: [id number] Quality ID # [id number]: Final reports with documentation of one or more dose reduction techniques (e.g., Au tomated exposure control, adjustment of the mA and/or kV according to patient size, use of iterative reconstruction technique) 2010 [employer]- All Rights Reserved Reading location - IP/workstation name: [email or web address]
--- NOTE | 2019-10-04 12:00 | RADIOLOGY REPORT (SQ) ---
EXAM DESCRIPTION: HIP RIGHT AP/LATERAL COMPLETED DATE/TIME: 10/04/2019 11:41 am REASON FOR STUDY: right hip pain COMPARISON: None. NUMBER OF VIEWS: Two views. TECHNIQUE: AP pelvis and additional frog-leg view of the right hip. LIMITATIONS: None. FINDINGS: MINERALIZATION: Normal. RIGHT HIP: No fracture or dislocation. No worrisome bone lesions. LEFT HIP: No fracture or dislocation. No worrisome bone lesions. PUBIS AND ISCHIUM: No fracture. PELVIS: No fracture. SACRUM: No fracture or dislocation. No worrisome bone lesions. LOWER LUMBAR SPINE: No fracture or dislocation. No worrisome bone lesions. No significant disc disea se. SOFT TISSUES: No findings. OTHER: No other significant finding. IMPRESSION: NEGATIVE STUDY OF THE RIGHT HIP. NO RADIOGRAPHIC EVIDENCE OF ACUTE INJURY. TECHNICAL DOCUMENTATION: JOB ID: [id number] [employer]- All Rights Reserved Reading location - IP/workstation name: [email or web address]
[2019-10-04] MEDS: ACETYLCYSTEINE 20% SOLN 800 MG/4 ML VIAL.NEB NEB SCH ×2 (13:57→19:49)
[2019-10-04] MEDS: VANCOMYCIN HCL 1,500 MG in DEXTROSE 5%-WATER 250 ML IV SCH (15:02)
--- NOTE | 2019-10-04 16:03 | PDOC PROGRESS REPORT ---
Subjective Progress Note for:: 10/04/19 Subjective:: This is a 9-year-old male with a past medical story of a chronic heavy smoking and reports history of asthma who presents with increasing shortness of breath and productive cough. Chest x-ray showed bilateral pneumonia. Upon encounter, he is saturating well on nasal cannula. He says his shortness of breath is slightly improved. Denies chest pain. Chest CT shows diffuse bilateral airspace disease consistent with multifocal pneumonia. Reason For Visit: COPD EXACERBATION,DM,PNEUMONIA Physical Exam Vital Signs: Temp Pulse Resp BP Pulse Ox 98.1 F 70 19 120/65 90 L 10/04/19 12:05 10/04/19 14:00 10/04/19 12:05 10/04/19 12:05 10/04/19 14:25 Intake & Output 10/03/19 10/04/19 10/05/19 06:59 06:59 06:59 Intake Total 2900 Output Total 0 Balance 2900 Weight 174 lb 9.698 oz General appearance: PRESENT: no acute distress, well-developed, well-nourished Head exam: PRESENT: atraumatic, normocephalic Eye exam: PRESENT: conjunctiva pink, EOMI, PERRLA. ABSENT: scleral icterus Ear exam: PRESENT: normal external ear exam Mouth exam: PRESENT: moist, tongue midline Neck exam: ABSENT: carotid bruit, JVD, lymphadenopathy, thyromegaly Respiratory exam: PRESENT: rales, rhonchi. ABSENT: wheezes Cardiovascular exam: PRESENT: RRR. ABSENT: diastolic murmur, rubs, systolic murmur Pulses: PRESENT: normal dorsalis pedis pul GI/Abdominal exam: PRESENT: normal bowel sounds, soft. ABSENT: distended, guarding, mass, organolmegaly, rebound, tenderness Rectal exam: PRESENT: deferred Extremities exam: PRESENT: full ROM. ABSENT: calf tenderness, clubbing, pedal edema Neurological exam: PRESENT: alert, awake, oriented to person, oriented to place, oriented to time, oriented to situation, CN II-XII grossly intact. ABSENT: motor sensory deficit Results Laboratory Results: 10/04/19 05:54 10/04/19 05:54 10/04/19 10/04/19 10/04/19 00:12 00:12 00:12 WBC 12.7 H RBC 3.64 L Hgb 10.4 L Hct 31.6 L MCV 87 MCH 28.7 MCHC 33.0 RDW 13.6 Plt Count 348 Seg Neutrophils % 89.5 H Retic Count (auto) VBG pH 7.43 H VBG pCO2 46.7 VBG HCO3 30.0 VBG Base Excess 4.9 Sodium 138.8 Potassium 3.8 Chloride 100 Carbon Dioxide 28 Anion Gap 11 BUN 8 Creatinine 0.59 Est GFR ( Amer) > 60 Glucose 239 H Calcium 8.9 Iron TIBC % Saturation Ferritin Total Bilirubin 0.5 AST 33 Alkaline Phosphatase 111 Total Protein 6.2 L Albumin 3.4 L Vitamin B12 Folate 10/04/19 10/04/19 10/04/19 05:54 05:54 05:54 WBC 13.8 H RBC 3.54 L Hgb 10.1 L Hct 30.6 L MCV 86 MCH 28.6 MCHC 33.1 RDW 14.0 Plt Count 315 Seg Neutrophils % Not Reportable Retic Count (auto) 1.08 VBG pH VBG pCO2 VBG HCO3 VBG Base Excess Sodium 137.0 Potassium 4.6 Chloride 99 Carbon Dioxide 27 Anion Gap 11 BUN 9 Creatinine 0.55 Est GFR ( Amer) > 60 Glucose 263 H Calcium 8.4 Iron TIBC % Saturation Ferritin Total Bilirubin AST Alkaline Phosphatase Total Protein Albumin Vitamin B12 Folate 10/04/19 05:54 WBC RBC Hgb Hct MCV MCH MCHC RDW Plt Count Seg Neutrophils % Retic Count (auto) VBG pH VBG pCO2 VBG HCO3 VBG Base Excess Sodium Potassium Chloride Carbon Dioxide Anion Gap BUN Creatinine Est GFR ( Amer) Glucose Calcium Iron 10.5 L TIBC 248 L % Saturation 4 Ferritin 246.00 Total Bilirubin AST Alkaline Phosphatase Total Protein Albumin Vitamin B12 578.0 Folate 9.17 10/04/19 00:12 Troponin I < 0.012 NT-Pro-B Natriuret Pep 399 H Impressions: Chest CT 10/04/19 00:00 IMPRESSION: Multifocal bilateral pneumonia. Chest X-Ray 10/04/19 00:23 IMPRESSION: Patchy bilateral airspace opacities suggestive of multifocal infection. Findings have worsened since prior study. Hip/Pelvis X-Ray 10/04/19 10:18 IMPRESSION: NEGATIVE STUDY OF THE RIGHT HIP. NO RADIOGRAPHIC EVIDENCE OF ACUTE INJURY. Assessment and Plan - Diagnosis (1) Multifocal pneumonia Is this a current diagnosis for this admission?: Yes Plan: Revise IV antibiotics to vancomycin and cefepime. Will also add azithromycin. Will order for sputum culture. (2) COPD exacerbation Is this a current diagnosis for this admission?: Yes Plan: Patient denies prior diagnosis of COPD. He does report history of asthma. Will need outpatient PFT testing. Continue breathing treatments and steroids. (3) Type 2 diabetes mellitus Is this a current diagnosis for this admission?: Yes (4) Asthma Qualifiers: Asthma severity: mild Asthma persistence: intermittent Asthma complication type: uncomplicated Qualified Code(s): J45.20 - Mild intermittent asthma, uncomplicated Is this a current diagnosis for this admission?: Yes - Time Time Spent with patient: 25-34 minutes
--- NOTE | 2019-10-04 17:07 | EKG REPORT ---
SEVERITY:- OTHERWISE NORMAL ECG - SINUS RHYTHM BORDERLINE LEFT AXIS DEVIATION : Confirmed by: Jas Ramirez MD 04-Oct-2019 17:07:22
[2019-10-04 17:27] LABS: A TYPE INFLUENZA AG NEGATIVE (NEGATIVE); B INFLUENZA AG NEGATIVE (NEGATIVE)
[2019-10-04] MEDS ORDERED: CEFEPIME 2 GM/D5W RTU 2 GM/50 ML RTUPB IV SCH (18:00)
[2019-10-04] MEDS ORDERED: SERTRALINE HCL 50 MG TABLET PO ONE (22:00)
[2019-10-04] MEDS: TRAZODONE HCL 50 MG TABLET PO SCH (22:12)
[2019-10-04] MEDS: HYDROXYZINE PAMOATE 50 MG CAPSULE PO SCH (22:14)
[2019-10-04] MEDS: CEFEPIME 1 GM/D5W RTU 1 GM/50 ML RTUPB IV SCH (22:15)
[2019-10-05] MEDS: IPRATROPIUM/ALBUTEROL 0.5-2.5 MG/3 ML AMPUL NEB SCH ×4 (02:15→20:17)
[2019-10-05] MEDS: VANCOMYCIN HCL 1,500 MG in DEXTROSE 5%-WATER 250 ML IV SCH ×2 (02:52→14:16)
[2019-10-05] MEDS: FLUTICASONE NASAL SPRAY 50 MCG/SPRY 120 SPRAY/16 GM NASL SCH ×2 (05:11→17:47)
[2019-10-05] MEDS: HEPARIN SOD (PORCINE) 5,000 UNIT/ML 1 ML VIAL SUBCUT SCH ×3 (05:12→21:11)
[2019-10-05 05:50] LABS: HEMATOCRIT 30.3 % (37.9-51.0); HEMOGLOBIN 9.9 g/dL (13.5-17.0); MEAN CORPUSCULAR HEMOGLOBIN 28.2 pg (27.0-33.4); MEAN CORPUSCULAR HGB CONC 32.6 g/dL (32.0-36.0); MEAN CORPUSCULAR VOLUME 87 fl (80-97); PLATELET COUNT 370 10^3/uL (150-450); WHITE BLOOD COUNT 19.3 10^3/uL (4.0-10.5)
[2019-10-05 06:04] LABS: ANION GAP 9 (5-19)
[2019-10-05 06:14] LABS: BAND NEUTROPHILS % (MANUAL) 7 % (3-5); BASOPHILS % (MANUAL) 0 % (0-2); EOSINOPHILS % (MANUAL) 0 % (0-6); LYMPHOCYTES % (MANUAL) 5 % (13-45); MONOCYTES % (MANUAL) 0 % (3-13); SEGMENTED NEUTROPHILS % (MAN) 88 % (42-78); TOTAL CELLS COUNTED 100
[2019-10-05 06:16] LABS: ANISOCYTOSIS 1+; PLATELET COMMENT ADEQUATE; POLYCHROMASIA 1+
[2019-10-05 06:58] LABS: BLOOD UREA NITROGEN 20 mg/dL (7-20); CALCIUM 8.6 mg/dL (8.4-10.2); CARBON DIOXIDE 28 mmol/L (22-30); CHLORIDE 101 mmol/L (98-107); GLUCOSE 256 mg/dL (75-110); POTASSIUM 4.8 mmol/L (3.6-5.0)
[2019-10-05] MEDS: INSULIN LISPRO 100 UNIT/ML 3 ML VIAL SUBCUT SCH ×3 (07:34→16:34)
[2019-10-05] MEDS ORDERED: CEFTRIAXONE 1 GM/D5W RTU 1 GM/50 ML RTUPB IV SCH (08:00)
[2019-10-05] MEDS: ACETYLCYSTEINE 20% SOLN 800 MG/4 ML VIAL.NEB NEB SCH ×2 (08:17→20:18)
[2019-10-05] MEDS: SERTRALINE HCL 50 MG TABLET PO SCH (09:15)
[2019-10-05] MEDS: CEFEPIME 1 GM/D5W RTU 1 GM/50 ML RTUPB IV SCH ×2 (09:15→21:11)
[2019-10-05] MEDS: PREDNISONE 20 MG TABLET PO SCH ×2 (09:15→17:00)
[2019-10-05] MEDS: AZITHROMYCIN 250 MG TABLET PO SCH (09:15)
[2019-10-05] MEDS: FERROUS SULFATE 325 MG TABLET PO SCH ×2 (11:28→17:00)
--- NOTE | 2019-10-05 14:29 | PDOC PROGRESS REPORT ---
Subjective Progress Note for:: 10/05/19 Subjective:: This is a 9-year-old male with a past medical story of a chronic heavy smoking and reports history of asthma who presents with increasing shortness of breath and productive cough. Chest x-ray showed bilateral pneumonia. 10/04: Upon encounter, he is saturating well on nasal cannula. He says his shortness of breath is slightly improved. Denies chest pain. Chest CT shows diffuse bilateral airspace disease consistent with multifocal pneumonia. 10/05: No acute event overnight. Denies acute complaints. This morning, he says his shortness of breath continued to improve. We will try to wean off O2 today. Reason For Visit: COPD EXACERBATION,DM,PNEUMONIA Physical Exam Vital Signs: Temp Pulse Resp BP Pulse Ox 97.8 F 78 18 116/56 L 94 10/05/19 08:38 10/05/19 13:59 10/05/19 13:59 10/05/19 08:38 10/05/19 13:59 Intake & Output 10/04/19 10/05/19 10/06/19 06:59 06:59 06:59 Intake Total 2900 1900 50 Output Total 0 Balance 2900 1900 50 Weight 174 lb 9.698 oz 170 lb 6.677 oz General appearance: PRESENT: no acute distress, well-developed, well-nourished Head exam: PRESENT: atraumatic, normocephalic Eye exam: PRESENT: conjunctiva pink, EOMI, PERRLA. ABSENT: scleral icterus Ear exam: PRESENT: normal external ear exam Mouth exam: PRESENT: moist, tongue midline Neck exam: ABSENT: carotid bruit, JVD, lymphadenopathy, thyromegaly Respiratory exam: PRESENT: rhonchi. ABSENT: rales, wheezes Cardiovascular exam: PRESENT: RRR. ABSENT: diastolic murmur, rubs, systolic murmur Pulses: PRESENT: normal dorsalis pedis pul GI/Abdominal exam: PRESENT: normal bowel sounds, soft. ABSENT: distended, guarding, mass, organolmegaly, rebound, tenderness Rectal exam: PRESENT: deferred Extremities exam: PRESENT: full ROM. ABSENT: calf tenderness, clubbing, pedal edema Neurological exam: PRESENT: alert, awake, oriented to person, oriented to place, oriented to time, oriented to situation, CN II-XII grossly intact. ABSENT: motor sensory deficit Results Laboratory Results: 10/05/19 05:15 10/05/19 05:15 10/05/19 10/05/19 10/05/19 05:15 05:15 14:10 WBC 19.3 H RBC 3.50 L Hgb 9.9 L Hct 30.3 L MCV 87 MCH 28.2 MCHC 32.6 RDW 14.0 Plt Count 370 Seg Neutrophils % Not Reportable Sodium 138.0 Potassium 4.8 Chloride 101 Carbon Dioxide 28 Anion Gap 9 BUN 20 Creatinine 0.58 Est GFR ( Amer) > 60 Glucose 256 H Calcium 8.6 Stool Occult Blood NEGATIVE 10/04/19 15:09 Sputum Gram Stain - Final 10/04/19 15:09 Sputum Sputum Culture - Final 10/04/19 00:12 Troponin I < 0.012 NT-Pro-B Natriuret Pep 399 H Impressions: Chest CT 10/04/19 00:00 IMPRESSION: Multifocal bilateral pneumonia. Chest X-Ray 10/04/19 00:23 IMPRESSION: Patchy bilateral airspace opacities suggestive of multifocal infection. Findings have worsened since prior study. Hip/Pelvis X-Ray 10/04/19 10:18 IMPRESSION: NEGATIVE STUDY OF THE RIGHT HIP. NO RADIOGRAPHIC EVIDENCE OF ACUTE INJURY. Assessment and Plan - Diagnosis (1) Multifocal pneumonia Is this a current diagnosis for this admission?: Yes Plan: 10/04: Revise IV antibiotics to vancomycin and cefepime. Will also add azithromycin. 10/05: Continue antibiotics. Sputum culture pending. (2) COPD exacerbation Is this a current diagnosis for this admission?: Yes Plan: Patient denies prior diagnosis of COPD. He does report history of asthma. He does have a history of heavy cigarette smoking. Will need outpatient PFT testing. Continue breathing treatments and steroids. (3) Type 2 diabetes mellitus Is this a current diagnosis for this admission?: Yes Plan: He does not take DM medications at home. A1c came back at 9.6. Will initiate metformin. (4) Asthma Qualifiers: Asthma severity: mild Asthma persistence: intermittent Asthma complic ation type: uncomplicated Qualified Code(s): J45.20 - Mild intermittent asthma, uncomplicated Is this a current diagnosis for this admission?: Yes - Time Time Spent with patient: 25-34 minutes
[2019-10-05 16:11] LABS: VANCOMYCIN,TROUGH 11.9 ug/mL (5.0-20.0)
[2019-10-05] MEDS: METFORMIN HCL 500 MG TABLET PO SCH (16:34)
[2019-10-05] MEDS: TRAZODONE HCL 50 MG TABLET PO SCH (21:06)
[2019-10-05] MEDS: HYDROXYZINE PAMOATE 50 MG CAPSULE PO SCH (21:12)
[2019-10-05] MEDS: VANCOMYCIN HCL 1,000 MG in DEXTROSE 5%-WATER 250 ML IV SCH (22:20)
[2019-10-06] MEDS: IPRATROPIUM/ALBUTEROL 0.5-2.5 MG/3 ML AMPUL NEB SCH ×2 (02:20→08:07)
[2019-10-06 05:28] LABS: ABSOLUTE LYMPHOCYTES (AUTO) 1.3 10^3/uL (0.5-4.7); ABSOLUTE MONOCYTES (AUTO) 0.5 10^3/uL (0.1-1.4); ABSOLUTE NEUT (AUTO) 13.1 10^3/uL (1.7-8.2); EOSINOPHILS % (AUTO) 0.1 % (0-6); HEMATOCRIT 31.2 % (37.9-51.0); HEMOGLOBIN 10.3 g/dL (13.5-17.0); LYMPHOCYTES % (AUTO) 8.6 % (13-45); MEAN CORPUSCULAR HEMOGLOBIN 28.6 pg (27.0-33.4); MEAN CORPUSCULAR HGB CONC 33.1 g/dL (32.0-36.0); MEAN CORPUSCULAR VOLUME 86 fl (80-97); MONOCYTES % (AUTO) 3.6 % (3-13); PLATELET COUNT 437 10^3/uL (150-450); RED BLOOD COUNT 3.61 10^6/uL (4.35-5.55); RED CELL DISTRIBUTION WIDTH 14.2 % (11.5-14.0); SEGMENTED NEUTROPHILS % (AUTO) 87.7 % (42-78); TOTAL CELLS COUNTED % (AUTO) 100 %
[2019-10-06 05:49] LABS: ANION GAP 6 (5-19); BLOOD UREA NITROGEN 19 mg/dL (7-20); CALCIUM 8.5 mg/dL (8.4-10.2); CARBON DIOXIDE 30 mmol/L (22-30); CHLORIDE 103 mmol/L (98-107); GLUCOSE 198 mg/dL (75-110); POTASSIUM 4.8 mmol/L (3.6-5.0)
[2019-10-06] MEDS: FLUTICASONE NASAL SPRAY 50 MCG/SPRY 120 SPRAY/16 GM NASL SCH (06:10)
[2019-10-06] MEDS: VANCOMYCIN HCL 1,000 MG in DEXTROSE 5%-WATER 250 ML IV SCH (06:14)
[2019-10-06] MEDS: HEPARIN SOD (PORCINE) 5,000 UNIT/ML 1 ML VIAL SUBCUT SCH (06:14)
[2019-10-06] MEDS: ACETYLCYSTEINE 20% SOLN 800 MG/4 ML VIAL.NEB NEB SCH (08:08)
[2019-10-06] MEDS: METFORMIN HCL 500 MG TABLET PO SCH (09:08)
[2019-10-06] MEDS: PREDNISONE 20 MG TABLET PO SCH (09:08)
[2019-10-06] MEDS: SERTRALINE HCL 50 MG TABLET PO SCH (09:08)
[2019-10-06] MEDS: FERROUS SULFATE 325 MG TABLET PO SCH (09:08)
[2019-10-06] MEDS: AZITHROMYCIN 250 MG TABLET PO SCH (09:09)
[2019-10-06] MEDS: INSULIN LISPRO 100 UNIT/ML 3 ML VIAL SUBCUT SCH ×2 (09:09→11:38)
[2019-10-06] MEDS: CEFEPIME 1 GM/D5W RTU 1 GM/50 ML RTUPB IV SCH (09:09)
--- NOTE | 2019-10-06 11:58 | PDOC DISCHARGE SUMMARY ---
Impression - Admit/DC Date/PCP Admission Date/Primary Care Provider: 10/04/19 02:04 [facility] Discharge Date: 10/06/19 - Assessment Summary: 59-year-old male admitted with pneumonia patient states that for 2 weeks has been getting more short of breath and having a productive cough. States he had pneumonia earlier this year in April. Patient be admitted for shortness of breath, cough Was treated with IV antibiotics Humalog sliding scale because his A1c was elevated. Did not know that he was diabetic or at least was not under any treatment for this She is being discharged home on metformin 500 mg twice daily prednisone 20 mg twice daily for 4 days Augmentin 875 number 16 tablets for 8 days and Zithromax 500 mg 8 tablets for 8 days She is asking to be discharged home today. Patient is on no oxygen. Patient is medically stable. - Additional Information Resuscitation Status: Full Code Discharge Diet: Diabetic Discharge Activity: Activity As Tolerated Referrals: [facility] [[facility]] - Follow up as needed (LEFT MESSAGE WITH PATIENT INFORMATION FOR FOLLOW UP APPT.) Prescriptions: Amox Tr/Potassium Clavulanate [Augmentin 875-125 mg Tablet] 1 tab PO BID 8 Days #16 tablet Prednisone [Deltasone 20 mg Tablet] 20 mg PO BID 4 Days #8 tablet Ferrous Sulfate [Feosol 325 mg Tablet] 325 mg PO BID 30 Days #60 tablet Metformin HCl [Glucophage 500 mg Tablet] 500 mg PO BIDACBS 30 Days #60 tablet Azithromycin [Zithromax 250 mg Tablet] 500 mg PO DAILY 8 Days #8 tablet Home Medications: Albuterol Sulfate [Proair HFA Inhalation Aerosol 8.5 gm MDI] 2 puff IH Q4HP PRN 04/30/19 Fluticasone Propionate [Flonase Nasal Lindrith 50 Mcg/Lindrith 16 gm] 2 spray NASL DAILY 04/30/19 Hydroxyzine Pamoate [Vistaril 25 mg Capsule] 25 mg PO TIDP PRN 04/30/19 Hydroxyzine Pamoate [Vistaril 25 mg Capsule] 50 mg PO HSP PRN 04/30/19 Omeprazole 20 mg PO DAILYP PRN 04/30/19 Oxycodone HCl/Acetaminophen [Percocet 10-325 mg Tablet] 1 tab PO Q8HP PRN 04/30/19 Prazosin HCl [Minipress] 1 mg PO QHS 04/30/19 Sertraline HCl [Zoloft] 200 mg PO DAILY 04/30/19 Sildenafil Citrate [Viagra] 100 mg PO DAILYP PRN 04/30/19 Trazodone HCl [Desyrel] 225 mg PO HSP PRN 04/30/19 Amox Tr/Potassium Clavulanate [Augmentin 875-125 mg Tablet] 1 tab PO BID 8 Days #16 tablet 10/06/19 Azithromycin [Zithromax 250 mg Tablet] 500 mg PO DAILY 8 Days #8 tablet 10/06/19 Ferrous Sulfate [Feosol 325 mg Tablet] 325 mg PO BID 30 Days #60 tablet 10/06/19 Fluticasone Propionate [Flonase Nasal Lindrith 50 Mcg/Lindrith 16 gm] 2 spray NASL Q12A spray.pump 10/06/19 Hydroxyzine Pamoate [Vistaril 50 mg Capsule] 50 mg PO QHS capsule 10/06/19 Metformin HCl [Glucophage 500 mg Tablet] 500 mg PO BIDACBS 30 Days #60 tablet 10/06/19 Prednisone [Deltasone 20 mg Tablet] 20 mg PO BID 4 Days #8 tablet 10/06/19 Sertraline HCl [Zoloft 50 mg Tablet] 200 mg PO DAILY tablet 10/06/19 Trazodone HCl [Desyrel 50 mg Tablet] 225 mg PO QHS tablet 10/06/19 History of Present Illiness History of Present Illness: MARIA E BARRETO is a 59 year old male Physical Exam Vital Signs: Temp Pulse Resp BP Pulse Ox 98.1 F 75 18 119/73 97 10/06/19 07:22 10/06/19 08:08 10/06/19 08:08 10/06/19 07:22 10/06/19 08:08 Intake & Output 10/05/19 10/06/19 10/07/19 06:59 06:59 06:59 Intake Total 1899 1850 Balance 1899 1850 Weight 77.3 kg 77.5 kg Results Laboratory Results: WBC 15.0 10^3/uL (4.0-10.5) H 10/06/19 04:21 RBC 3.61 10^6/uL (4.35-5.55) L 10/06/19 04:21 Hgb 10.3 g/dL (13.5-17.0) L 10/06/19 04:21 Hct 31.2 % (37.9-51.0) L 10/06/19 04:21 MCV 86 fl (80-97) 10/06/19 04:21 MCH 28.6 pg (27.0-33.4) 10/06/19 04:21 MCHC 33.1 g/dL (32.0-36.0) 10/06/19 04:21 RDW 14.2 % (11.5-14.0) H 10/06/19 04:21 Plt Count 437 10^3/uL (150-450) 10/06/19 04:21 Lymph % (Auto) 8.6 % (13-45) L 10/06/19 04:21 [place] % (Auto) 3.6 % (3-13) 10/06/19 04:21 Eos % (Auto) 0.1 % (0-6) 10/06/19 04:21 Baso % (Auto) 0.0 % (0-2) 10/06/19 04:21 Reticulocyte # 0.038 10^6/uL (0.028-0.122) 10/04/19 05:54 Absolute Neuts (auto) 13.1 10^3/uL (1.7-8.2) H 10/06/19 04:21 Absolute Lymphs (auto) 1.3 10^3/uL (0.5-4.7) 10/06/19 04:21 Absolute Monos (auto) 0.5 10^3/uL (0.1-1.4) 10/06/19 04:21 Absolute Eos (auto) 0.0 10^3/uL (0.0-0.6) 10/06/19 04:21 Absolute Basos (auto) 0.0 10^3/uL (0.0-0.2) 10/06/19 04:21 Total Counted 100 10/05/19 05:15 Seg Neutrophils % 87.7 % (42-78) H 10/06/19 04:21 Seg Neuts % (Manual) 88 % (42-78) H 10/05/19 05:15 Band Neutrophils % 7 % (3-5) H 10/05/19 05:15 Lymphocytes % (Manual) 5 % (13-45) L 10/05/19 05:15 Monocytes % (Manual) 0 % (3-13) L 10/05/19 05:15 Eosinophils % (Manual) 0 % (0-6) 10/05/19 05:15 Basophils % (Manual) 0 % (0-2) 10/05/19 05:15 Abs Neuts (Manual) 18.3 10^3/uL (1.7-8.2) H 10/05/19 05:15 Abs Lymphs (Manual) 1.0 10^3/uL (0.5-4.7) 10/05/19 05:15 Abs Monocytes (Manual) 0.0 10^3/uL (0.1-1.4) L 10/05/19 05:15 Absolute Eos (Manual) 0.0 10^3/uL (0.0-0.6) 10/05/19 05:15 Abs Basophils (Manual) 0.0 10^3/uL (0.0-0.2) 10/05/19 05:15 Toxic Granulation SLIGHT 10/04/19 05:54 Large Platelets PRESENT 10/04/19 05:54 Giant Platelets PRESENT 10/04/19 05:54 Platelet Comment ADEQUATE 10/05/19 05:15 Polychromasia 1+ 10/05/19 05:15 Anisocytosis 1+ 10/05/19 05:15 RBC Morph Comment NORMO-CYTIC/CHROMIC 10/04/19 05:54 Retic Count (auto) 1.08 % (0.66-2.85) 10/04/19 05:54 PT 15.0 SEC (11.4-15.4) 10/04/19 00:12 INR 1.17 10/04/19 00:12 VBG pH 7.43 (7.30-7.42) H 10/04/19 00:12 VBG pCO2 46.7 mmHg (35-63) 10/04/19 00:12 VBG HCO3 30.0 mmol/L (20-32) 10/04/19 00:12 VBG Base Excess 4.9 mmol/L 10/04/19 00:12 Sodium 138.7 mmol/L (137-145) 10/06/19 04:21 Potassium 4.8 mmol/L (3.6-5.0) 10/06/19 04:21 Chloride 103 mmol/L (98-107) 10/06/19 04:21 Carbon Dioxide 30 mmol/L (22-30) 10/06/19 04:21 Anion Gap 6 (5-19) 10/06/19 04:21 BUN 19 mg/dL (7-20) 10/06/19 04:21 Creatinine 0.58 mg/dL (0.52-1.25) 10/06/19 04:21 Est GFR ( Amer) > 60 (>60) 10/06/19 04:21 Est GFR (MDRD) Non-Af > 60 (>60) 10/06/19 04:21 Glucose 198 mg/dL (75-110) H 10/06/19 04:21 POC Glucose 129 mg/dL (70-110) H 10/06/19 11:21 Hemoglobin A1c % 9.6 % (4.7-6.0) H 10/04/19 00:12 Lactic Acid (Sepsis) 1.6 mmol/L (0.7-2.1) 10/04/19 00:45 Calcium 8.5 mg/dL (8.4-10.2) 10/06/19 04:21 Iron 10.5 ug/dL (49-181) L 10/04/19 05:54 TIBC 248 ug/dL (250-450) L 10/04/19 05:54 % Saturation 4 % 10/04/19 05:54 Ferritin 246.00 ng/mL (17.9-464.0) 10/04/19 05:54 Total Bilirubin 0.5 mg/dL (0.2-1.3) 10/04/19 00:12 Direct Bilirubin 0.1 mg/dL (0.0-0.4) 10/04/19 00:12 Neonat Total Bilirubin Not Reportable 10/04/19 00:12 Neonat Direct Bilirubin Not Reportable 10/04/19 00:12 Neonat Indirect Bili Not Reportable 10/04/19 00:12 AST 33 U/L (17-59) 10/04/19 00:12 ALT 22 U/L (<50) 10/04/19 00:12 Alkaline Phosphatase 111 U/L (38-126) 10/04/19 00:12 Troponin I < 0.012 ng/mL 10/04/19 00:12 NT-Pro-B Natriuret Pep 399 pg/mL (<125) H 10/04/19 00:12 Total Protein 6.2 g/dL (6.3-8.2) L 10/04/19 00:12 Albumin 3.4 g/dL (3.5-5.0) L 10/04/19 00:12 Vitamin B12 578.0 pg/mL (239-931) 10/04/19 05:54 Folate 9.17 ng/mL (>2.76) 10/04/19 05:54 Stool Occult Blood NEGATIVE (NEGATIVE) 10/05/19 14:10 Time Trough Drawn 1508 10/05/19 15:08 Vancomycin Trough 11.9 ug/mL (5.0-20.0) 10/05/19 15:08 HIV 1&2 Antibody NEGATIVE (NEGATIVE) 10/05/19 05:15 Influenza A (Rapid) NEGATIVE (NEGATIVE) 10/04/19 16:48 Influenza B (Rapid) NEGATIVE (NEGATIVE) 10/04/19 16:48 10/04/19 00:12 Troponin I < 0.012 NT-Pro-B Natriuret Pep 399 H Impressions: Chest CT 10/04/19 00:00 IMPRESSION: Multifocal bilateral pneumonia. Chest X-Ray 10/04/19 00:23 IMPRESSION: Patchy bilateral airspace opacities suggestive of multifocal infection. Findings have worsened since prior study. Hip/Pelvis X-Ray 10/04/19 10:18 IMPRESSION: NEGATIVE STUDY OF THE RIGHT HIP. NO RADIOGRAPHIC EVIDENCE OF ACUTE INJURY. Stroke Is this a Stroke Patient?: No Acute Heart Failure - Is this a Heart Failure Patient?: No
[2019-10-06 13:01] VITALS: BP 131/60
== END 2019-10-06 13:25 | disposition home or self-care (01) | DRG 194 ==
LOC: ER 23:56 → OBSVTOIN 10-04 02:04 → EH 10-04 02:04 → 4S 10-04 03:40
PROVIDERS: ADMIT Internal Medicine; ATTEND Internal Medicine
DX: J18.9 Pneumonia, unspecified organism (principal); J44.0 Chronic obstructive pulmonary disease with (acute) lower respiratory infection; E11.9 Type 2 diabetes mellitus without complications; I10 Essential (primary) hypertension; K21.9 Gastro-esophageal reflux disease without esophagitis; F32.9 Major depressive disorder, single episode, unspecified; F43.10 Post-traumatic stress disorder, unspecified; F17.200 Nicotine dependence, unspecified, uncomplicated; F41.9 Anxiety disorder, unspecified; Z89.022 Acquired absence of left finger(s); Z87.01 Personal history of pneumonia (recurrent); Z79.84 Long term (current) use of oral hypoglycemic drugs; Z84.89 Family history of other specified conditions
CPT/HCPCS: 36415; 71045; 71250; 80048; 80053; 80202; 82272; 82607; 82728; 82746; 82803; 82962; 83036; 83540; 83550; 83605; 83880; 84484; 85025; 85045; 85610; 86701; 87040; 87070; 87205; 87804; 93005; 93010; 94640; 94667; 94668; 94799; 96365; 96367; 96368; 96375; 99285; J0692; J0696; J1644; J1815; J1956; J2930; J3370; J3475; J3490; J7030; J7060; J7512; J7620

== ENCOUNTER → 2020-02-15 | Outpatient (CLI) | payer OTHER, MEDICARE ==
--- NOTE | 2020-02-15 13:19 | ER RDC ASSESSMENT REPORT ---
Intake - In the Last 14 days Have you traveled outside [place]?: No Have you been in close contact with someone CONFIRMED: No Worked in Healthcare?: No - Symptoms Subjective Fever([place] feverish): Yes Chills: Yes Muscule Aches: Yes Runny Nose: Yes Sore Throat: Yes Cough (New or worsening chronic cough): Yes Shortness of breath: Yes Nausea or Vomiting: No Headache: Yes Abdominal Pain: Yes Diarrhea(3 or more loose stools in last 24 hours): Yes - Do you have any of the following Chronic lung disease: Asthma or emphysema or COPD: Yes Chronic Lung Disease Comment: Patient reports a history of asthma reports takes an inhaler about once a month and has needed to take it multiple times per day in the last week Cystic Fibrosis: No Diabetes: Yes Diabetes Comment: reports has history of diabetes type 2 High Blood Pressure: No Cardiovascular Disease: No Chronic Kidney Disease: No Chronic Liver Disease: No Chronic blood disorder like Sickle Cell Disease: No Weak immune system due to disease or medication: No Neurologic condition that limits movement: No Developmental delay - Moderate to Severe: No Recent (within past 2 weeks) or current : No Other Comment: Height 6 feet 1 inch weight 168 pounds - Objective Temperature: 97.6 F Pulse Rate: 92 Respiratory Rate: 20 Blood Pressure: 151/71 O2 Sat by Pulse Oximetry: 94 Objective: Given above, testing performed: If Testing Performed: Test Specimen Type Sent to General - General Information source: Patient Notes: Patient here for Covid testing states his been feeling sick for about a week. reports has a history of "double PN' last year and history of Asthma. Reports is a disabled Vet and gets [place] via the [place] and has not been able to get up with anyone for care. States uses an inhalor with relief about once a month and several times a day in the past week. Reports a dry cough. States this is not like when had PN. - HPI Onset: Last week - Related Data Allergies/Adverse Reactions: No Known Allergies Allergy (Unverified 04/30/19 07:31) Past Medical History - Social History Smoking Status: Former Smoker - Reports quit smoking 10 years ago Family History: COPD, Malignancy - Mother of small cell lung cancer, father of unknown malignancy Pulmonary Medical History: Reports: Hx Asthma, Hx Bronchitis, Hx COPD Endocrine Medical History: Reports: Hx Diabetes Mellitus Type 2 Renal/ Medical History: Denies: Hx Peritoneal Dialysis Psychiatric Medical History: Reports: Hx Anxiety, Hx Depression, Hx Post Traumatic Stress Disorder Past Surgical History: Reports: Hx Appendectomy, Hx Orthopedic Surgery - amputation of ring finger left hand Physical Exam - General General appearance: Appears well, Alert In distress: None Notes: PHYSICAL EXAMINATION: GENERAL: Well-appearing and in no acute distress. HEAD: Atraumatic, normocephalic. EYES: sclera anicteric, conjunctiva are normal. ENT: nares patent. Moist mucous membranes. NECK: Normal range of motion, supple without lymphadenopathy LUNGS: CTAB and equal. No wheezes rales or rhonchi. Patient has an occassional dry cough noted. Resp even and unlabored. Lung sounds clear. HEART: Regular rate and rhythm without murmurs ABDOMEN: Soft, nontender, normal bowel sounds, no guarding. EXTREMITIES: No cyanosis. NEUROLOGICAL: Normal speech. PSYCH: Normal mood, normal affect. SKIN: Warm, Dry, normal turgor, no rashes or lesions noted Diagnostic Results Laboratory Results: Patient informed of negative rapid strep and negative rapid flu results. pending strep culture. Pending COVID results. Intructions for COVID 19 provided to include: As a person under investigation for Covid 19, the [place] department of Health and Human Services, division of public health advises you to adhere to the following guidance until your test results are reported to you. If your test result is positive, you will receive additional information from your provider and your local health department at that time. Remain at home until you are cleared by the health provider or public health authorities. Keep a log of visitors to your home, notify any visitors to your home of your isolation status. If you plan to move to a new address or leave the county, notify the local health department in your County. Call your doctor or seek care if you have an urgent medical need. Before seeking medical care, call ahead to get instructions from the provider before arriving at the medical office clinic or hospital. Notify them that you are being tested for the virus that causes Covid 19 so that arrangements can be made, as necessary, to prevent transmission to others in the healthcare setting. Next, notify the local health department in your county. If a medical emergency arises and you need to call 911, inform the first responders that you are being tested for the virus that causes Covid 19. Next, notify the local health department in your county. Patient Education/Counseling Counseling/Education: Patient presents with upper respiratory symptoms worrisome for possible Covid 19. Patient does not have emergency worring symptoms such as difficulty breathing, shortness of breath, chest pain, pressure, confusion or cyanosis. Patient appears suitable for discharge. Patient's vital signs are stable and patient is nontoxic in appearance. Good return precautions have been discussed with patient, patient verbalized understanding and is agreeable with discharge plan of care at this time. RDC Discharge - Discharge Clinical Impression: COVID 19 SCREENING Condition: Stable Disposition: Home; Selfcare
[2020-02-15 13:20] VITALS: BP 151/71
[2020-02-15 13:51] LABS: A TYPE INFLUENZA AG NEGATIVE (NEGATIVE); B INFLUENZA AG NEGATIVE (NEGATIVE)
== END ==
LOC: RDC 12:33
PROVIDERS: ATTEND Nurse Practitioner Family
DX: Z20.828 Contact with and (suspected) exposure to other viral communicable diseases (principal); R06.02 Shortness of breath; R50.9 Fever, unspecified; J02.9 Acute pharyngitis, unspecified; J45.909 Unspecified asthma, uncomplicated; R05 Cough; R09.89 Other specified symptoms and signs involving the circulatory and respiratory systems; M79.10 Myalgia, unspecified site; R51 Headache; R10.9 Unspecified abdominal pain; R19.7 Diarrhea, unspecified; E11.9 Type 2 diabetes mellitus without complications; Z87.891 Personal history of nicotine dependence
CPT/HCPCS: 87070; 87635; 87804; 87880; 99211